=== PATIENT | female | born 1985 | race American Indian/Alaskan Native ===

== ENCOUNTER 2016-10-09 02:19 | Emergency (ER) | payer SELFPAY ==
[2016-10-09 02:20] VITALS: BMI 38.4
[2016-10-09 02:57] VITALS: RESP 16
[2016-10-09 03:27] LABS: BASO % 0.5 % (0.0-2.0); EOS # 0.1 K/uL (0.0-0.7); EOS % 1.3 % (0.0-4.0); HEMATOCRIT 39.7 % (34.0-47.0); LYMPH # 2.3 K/uL (1.0-4.3); LYMPH % 32.5 % (20.0-40.0); MEAN CELL VOLUME 88.4 fl (81.0-99.0); MEAN CORPUSCULAR HEMOGLOBIN 29.8 pg (27.0-31.0); MEAN CORPUSCULAR HGB CONC 33.7 g/dL (33.0-37.0); MEAN PLATELET VOLUME 7.2 fl (7.2-11.7); MONO # 0.6 K/uL (0.0-0.8); MONO % 8.7 % (0.0-10.0); NEUT # 4.1 K/uL (1.8-7.0); NRBC % 0.1 % (0.0-0.0); WHITE BLOOD COUNT 7.1 K/uL (4.8-10.8)
[2016-10-09 03:32] LABS: BLOOD UREA NITROGEN 9 mg/dl (7-17); CALCIUM 9.8 mg/dL (8.4-10.2); CARBON DIOXIDE 27 mmol/L (22-30); CHLORIDE 103 mmol/L (98-107); GFR AFRICAN-AMERICAN > 60; GLUCOSE,RANDOM 92 mg/dL (65-105); POTASSIUM 4.1 MMOL/L (3.6-5.0); SODIUM 143 mmol/l (132-148)
--- NOTE | 2016-10-09 03:51 | ED PDOC ---
HPI: Headache Time Seen by Provider: 10/09/16 02:34 Chief Complaint (Nursing): Headache Chief Complaint (Provider): Headache History Per: Patient History/Exam Limitations: no limitations Additional Complaint(s): Paulette Emerson, a 30 year old female, presents to the ED complaining of a headache x1 day. The patient reports that the headache started earlier today and it is a constant heaviness on both sides of her head. She states that she feels some tingling in her head and also behind her eyes. The patient reports that she has a history of recurrent headache and says that she thinks she may have migraines. She states that this is a typical headache for her. Of note: The patient states that she ran out of her hypertension medication and her pressure has be increasingly high due to this. The patient reports that she saw her doctor for the migraines and takes tylenol and advil to relieve the pain. Patient has never seen a neurologist. Past Medical History Reviewed: Historical Data, Nursing Documentation, Vital Signs Vital Signs: Last Vital Signs Temp 97.2 F L 10/09/16 02:29 Pulse 99 H 10/09/16 02:29 Resp 16 10/09/16 02:29 BP 157/107 H 10/09/16 02:29 Pulse Ox 100 10/09/16 02:29 - Medical History PMH: Back Problems, HTN Denies: Chronic Kidney Disease - Surgical History Surgical History: (x3) Other surgeries: Tubal ligation - Family History Family History: States: Unknown Family Hx, Hypertension - Immunization History Hx Influenza Vaccination: Yes - Home Medications Home Medications: Ambulatory Orders Medication Instructions Recorded Cimetidine 300 mg PO DAILY #5 tab 08/15/14 Clotrimazole 1% Cream [Lotrimin 1% 1 applic TOP BID #2 tube 08/15/14 CREAM] DiphenhydrAMINE [Benadryl] 25 mg PO Q8H PRN 5 Days 08/15/14 Prednisone 20 mg PO BID #10 tab 08/15/14 Naproxen [Naprosyn] 500 mg PO BID #20 tab 01/28/15 Tizanidine Hydrochloride 4 mg PO Q6 PRN #20 tab 01/28/15 [Tizanidine HCl] oxyCODONE/Acetaminophen [Percocet 1 tab PO Q6H PRN #20 tab 01/28/15 5/325 mg Tab] Acetaminophen with Codeine 1 tab PO Q6H PRN #15 tab 04/13/16 [Tylenol with Codeine No. 3 300 mg-30 mg] Naproxen [Naprosyn] 1 tab PO BID PRN #60 tab 04/17/16 Atenolol 100 mg PO DAILY #30 tab 10/09/16 amLODIPine [Norvasc] 10 mg PO DAILY #30 tab 10/09/16 - Allergies Allergies/Adverse Reactions: Allergies Allergy/AdvReac Type Severity Reaction Status Date / Time No Known Allergies Allergy Verified 01/28/15 13:16 Review of Systems ROS Statement: Except As Marked, All Systems Reviewed And Found Negative Neurological: Positive for: Headache (Constant headache on both sides of the head.), Other (Tingling in head and behind eyes.) Physical Exam - Reviewed Nursing Documentation Reviewed: Yes Vital Signs Reviewed: Yes - Physical Exam Appears: Positive for: Non-toxic, No Acute Distress Head Exam: Positive for: ATRAUMATIC, NORMAL INSPECTION, NORMOCEPHALIC Skin: Positive for: Normal Color, Warm, Dry Eye Exam: Positive for: Normal appearance, EOMI, PERRL ENT: Positive for: Normal ENT Inspection Neck: Positive for: Normal, Painless ROM, Supple Cardiovascular/Chest: Positive for: Regular Rate, Rhythm, Chest Non Tender. Negative for: Tachycardia Respiratory: Positive for: Normal Breath Sounds Gastrointestinal/Abdominal: Positive for: Normal Exam, Soft. Negative for: Tenderness, Guarding Back: Positive for: Normal Inspection Extremity: Positive for: Normal ROM Neurologic/Psych: Positive for: Alert, Oriented, Gait - Laboratory Results Result Diagrams: 10/09/16 03:21 10/09/16 03:21 - ECG O2 Sat by Pulse Oximetry: 100 (RA) Pulse Ox Interpretation: Normal - CT Scan/US CT head Other Rad Studies (CT/US): Read By Radiologist, Radiology Report Reviewed Other Rad Interpretation: no acute findings - Progress Re-evaluation Time: 05:00 Condition: Re-examined, Improved Medical Decision Making Medical Decision Makin Initial impression: 30 year old female presenting with hypertension and headache differentials: Hypertension urgencies, Migraines Initial Plan: * CT Head w/o contrast * EKG * Basic Metaolic Panel * CBC * Reglan 10mg IVP * Toradol 30mg IVP * Tylenol 650mg PO * Reevaluation Scribe Attestation Documented by Addie Caballero acting as a scribe for Esthela Quan MD. Provider Attestation All medical record entries made by the Scribe were at my direction and personally dictated by me. I have reviewed the chart and agree that the record accurately reflects my personal performance of the history, physical exam, medical decision making, and the department course for this patient. I have also personally directed, reviewed, and agree with the discharge instructions and disposition. Disposition - Clinical Impression Clinical Impression: Migraine, Hypertension - Patient ED Disposition Is Patient to be Admitted: No Doctor Will See Patient In The: Office Counseled Patient/Family Regarding: Studies Performed, Diagnosis, Need For Followup - Disposition Referrals: Dickson Daniel MD [Primary Care Provider] - Elver Taylor MD [Staff Provider] - Disposition: Routine/Home Disposition Time: 05:27 Condition: GOOD Additional Instructions: Take your medications as instructed. Follow up with your PCP in 2-3 days. Prescriptions: amLODIPine [Norvasc] 10 mg PO DAILY #30 tab Atenolol 100 mg PO DAILY #30 tab Instructions: Migraine Headache (ED), Hypertension (ED)
--- NOTE | 2016-10-09 04:08 | CT ---
EXAM: CT Head Without Intravenous Contrast CLINICAL HISTORY: 30 years old, female; Pain; Headache TECHNIQUE: Axial computed tomography images of the head/brain without intravenous contrast. This CT exam was performed using one or more of the following dose reduction techniques: automated exposure control, adjustment of the mA and/or kV according to patient size, and/or use of iterative reconstruction technique. Coronal and sagittal reformatted images were created and reviewed. EXAM DATE/TIME: 10/09/2016 2:55 AM COMPARISON: CT - HEAD W/O CONTRAST 04/13/2016 6:58:09 PM FINDINGS: No intracranial hemorrhage. No intracranial edema. No evidence of infarct. The sinuses and mastoid air cells are clear. IMPRESSION: No acute findings.
[2016-10-09] MEDS ORDERED: Magnesium Sulfate 1 gm in D5W 1 GM/100 ML BAG IVPB STA (04:15)
[2016-10-09] MEDS ORDERED: Dexamethasone 4 mg/1 ml IVP STA (04:15)
[2016-10-09] MEDS ORDERED: Valproate Sodium 500 mg Inj ONE (04:20)
[2016-10-09] MEDS ORDERED: Magnesium Sulfate 1 GM in Dextrose 5% In Water 100 ML IV STA (04:37)
[2016-10-09 06:16] VITALS: PULSE 78; TEMP 97.8; O2SAT 99
[2016-10-09 06:39] VITALS: BP 131/88
--- NOTE | 2016-10-09 10:11 | CARD ---
APPROVED REPORT EKG Measurement Heart [id number] <Conclusion> Normal sinus rhythm with limb lead reversal recommend repeat
== END 2016-10-09 06:40 | disposition home or self-care (01) ==
LOC: H.ER 02:19
DX: G43.909 Migraine, unspecified, not intractable, without status migrainosus (principal); I10 Essential (primary) hypertension
CPT/HCPCS: 70450; 80048; 85025; 93005; 96374; 96375; 99285; J1100; J1885; J2765; J3475

== ENCOUNTER 2017-04-06 07:59 | Emergency (ER) | payer MEDICAID, OTHER ==
[2017-04-06 08:15] VITALS: BMI 30.8
[2017-04-06 08:16] VITALS: RESP 16; TEMP 98.6; O2SAT 98
--- NOTE | 2017-04-06 09:04 | ED PDOC ---
HPI: Headache Time Seen by Provider: 04/06/17 08:41 Chief Complaint (Nursing): Headache Chief Complaint (Provider): Headache History Per: Patient History/Exam Limitations: no limitations Onset/Duration Of Symptoms: Days (2) Current Symptoms Are (Timing): Still Present Additional History Per: Patient Additional Complaint(s): 31yo female with history of HTN, presents to ED with complaints of headache, bilateral ear pain and runny nose for the past 2 days. Patient denies any associated sore throat, cough or fever. She offers no other medical complaints. Past Medical History Reviewed: Historical Data, Nursing Documentation, Vital Signs Vital Signs: Last Vital Signs Temp 98.6 F 04/06/17 08:15 Pulse 67 04/06/17 08:15 Resp 16 04/06/17 08:15 BP 140/89 04/06/17 08:15 Pulse Ox 98 04/06/17 08:15 - Medical History PMH: Back Problems, HTN Denies: Chronic Kidney Disease - Surgical History Surgical History: (x3) - Family History Family History: States: Unknown Family Hx, Hypertension - Immunization History Hx Influenza Vaccination: Yes - Home Medications Home Medications: Ambulatory Orders Medication Instructions Recorded Cimetidine 300 mg PO DAILY #5 tab 08/15/14 Clotrimazole 1% Cream [Lotrimin 1% 1 applic TOP BID #2 tube 08/15/14 CREAM] DiphenhydrAMINE [Benadryl] 25 mg PO Q8H PRN 5 Days cap 08/15/14 Prednisone 20 mg PO BID #10 tab 08/15/14 Naproxen [Naprosyn] 500 mg PO BID #20 tab 01/28/15 Tizanidine Hydrochloride 4 mg PO Q6 PRN #20 tab 01/28/15 [Tizanidine HCl] oxyCODONE/Acetaminophen [Percocet 1 tab PO Q6H PRN #20 tab 01/28/15 5/325 mg Tab] Acetaminophen with Codeine 1 tab PO Q6H PRN #15 tab 04/13/16 [Tylenol with Codeine No. 3 300 mg-30 mg] Naproxen [Naprosyn] 1 tab PO BID PRN #60 tab 04/17/16 Atenolol 100 mg PO DAILY #30 tab 10/09/16 amLODIPine [Norvasc] 10 mg PO DAILY #30 tab 10/09/16 Oseltamivir [Tamiflu] 75 mg PO BID #10 cap 04/06/17 traMADol [Ultram] 50 mg PO Q8 #10 tab 04/06/17 - Allergies Allergies/Adverse Reactions: Allergies Allergy/AdvReac Type Severity Reaction Status Date / Time No Known Allergies Allergy Verified 04/06/17 08:26 Review of Systems ROS Statement: Except As Marked, All Systems Reviewed And Found Negative Constitutional: Negative for: Fever ENT: Positive for: Ear Pain, Nose Discharge. Negative for: Throat Pain Respiratory: Negative for: Cough Neurological: Positive for: Headache Physical Exam - Reviewed Nursing Documentation Reviewed: Yes Vital Signs Reviewed: Yes - Physical Exam Appears: Positive for: Non-toxic, No Acute Distress Head Exam: Positive for: ATRAUMATIC, NORMAL INSPECTION, NORMOCEPHALIC Skin: Positive for: Normal Color Eye Exam: Positive for: Normal appearance ENT: Positive for: Normal ENT Inspection, TM Is/Are (clear bilaterally). Negative for: Pharyngeal Erythema, Tonsillar Exudate, Tonsillar Swelling Neck: Positive for: Normal, Painless ROM, Supple Cardiovascular/Chest: Positive for: Regular Rate, Rhythm Respiratory: Positive for: Normal Breath Sounds. Negative for: Respiratory Distress - ECG O2 Sat by Pulse Oximetry: 98 (RA) Pulse Ox Interpretation: Normal Medical Decision Making Medical Decision Making: Impression: Headache Plan: -- Motrin 600 mg PO -- Rapid flu Time: 1036 Serology report reviewed, patient negative for Flu A or B. Scribe Attestation: Documented by Emily Catherine, acting as a scribe for Navid Rey MD. Provider Scribe Attestation: All medical record entries made by the Scribe were at my direction and personally dictated by me. I have reviewed the chart and agree that the record accurately reflects my personal performance of the history, physical exam, medical decision making, and the department course for this patient. I have also personally directed, reviewed, and agree with the discharge instructions and disposition. Disposition - Clinical Impression Clinical Impression: Influenza - Patient ED Disposition Is Patient to be Admitted: No Counseled Patient/Family Regarding: Studies Performed, Diagnosis, Need For Followup, Rx Given - Disposition Referrals: [facility] [Outside] Disposition: Routine/Home Disposition Time: 10:38 Condition: FAIR Prescriptions: Oseltamivir [Tamiflu] 75 mg PO BID #10 cap traMADol [Ultram] 50 mg PO Q8 #10 tab Instructions: Influenza (ED) Forms: [employer] [facility] ([place])
[2017-04-06 12:14] VITALS: BP 132/88; PULSE 66
== END 2017-04-06 12:14 | disposition home or self-care (01) ==
LOC: H.ER 07:59
DX: J11.1 Influenza due to unidentified influenza virus with other respiratory manifestations (principal); I10 Essential (primary) hypertension

== ENCOUNTER 2017-07-04 03:10 | Emergency (ER) | payer OTHER ==
[2017-07-04 03:11] VITALS: BMI 30.8
[2017-07-04 03:39] VITALS: BP 143/97; PULSE 77; RESP 18; TEMP 98.4; O2SAT 100
--- NOTE | 2017-07-04 04:09 | ED PDOC ---
HPI: Headache Chief Complaint (Provider): headache History Per: Patient History/Exam Limitations: no limitations Onset/Duration Of Symptoms: Hrs (6) Current Symptoms Are (Timing): Still Present Severity: Moderate Quality: "Pain" Associated Symptoms: Blurred Vision. denies: Photophobia, Nausea, Vomiting Additional History Per: Patient Additional Complaint(s): 31 y/o F with Hx of migraines presents c/o headache for the past 6 hours. Patient states she took tylenol and tramadol at home without relief. She states pain is the headache that she usually gets when she has migraines attacks. Pain is associated with blurry vision but denies any other symptoms including Nausea , vomiting, CP, SOB, dizziness. - Risk Factors SAH Risk Factors: Pos: Sudden Onset Of Pain Nest Degree Relative(s) W/SAH, Polycystic Kidney Disease, Marfan's Syndrome, Rich-Danlos Syndrome, Neurofibromatos, Type I, Worst Headache Of Life <Jarad Pineda - Last Filed: 07/04/17 15:39> <Esthela Quan - Last Filed: 07/05/17 18:05> Time Seen by Provider: 07/04/17 03:25 Chief Complaint (Nursing): Headache Supervising Attending Note - Supervising Attending Note The Documented history was done by the: Physician Refuse Driver, Attending Physician The documented physical exam was done by the: Physician Refuse Driver, Attending Physician The documented procedures were done by the: Physician Refuse Driver, Attending Physician - Attestation: I have personally seen and examined this patient.: Yes I have fully participated in the care of the patient.: Yes I have reviewed all pertinent clinical information: Yes <Esthela Quan - Last Filed: 07/05/17 18:05> Past Medical History Reviewed: Nursing Documentation, Vital Signs Vital Signs: Last Vital Signs Temp 98.4 F 07/04/17 03:31 Pulse 77 07/04/17 03:31 Resp 18 07/04/17 03:31 BP 143/97 H 07/04/17 03:31 Pulse Ox 100 07/04/17 03:31 - Medical History PMH: Back Problems, HTN Denies: Chronic Kidney Disease - Surgical History Surgical History: (x3) - Family History Family History: States: Unknown Family Hx, Hypertension - Immunization History Hx Influenza Vaccination: Yes <Jarad Pineda - Last Filed: 07/04/17 15:39> Reviewed: Historical Data Vital Signs: Last Vital Signs Temp 98.4 F 07/04/17 03:31 Pulse 77 07/04/17 03:31 Resp 18 07/04/17 03:31 BP 143/97 H 07/04/17 03:31 Pulse Ox 100 07/04/17 04:12 <Esthela Quan - Last Filed: 07/05/17 18:05> - Home Medications Home Medications: Ambulatory Orders Medication Instructions Recorded Cimetidine 300 mg PO DAILY #5 tab 08/15/14 Clotrimazole 1% Cream [Lotrimin 1% 1 applic TOP BID #2 tube 08/15/14 CREAM] DiphenhydrAMINE [Benadryl] 25 mg PO Q8H PRN 5 Days cap 08/15/14 Prednisone 20 mg PO BID #10 tab 08/15/14 Naproxen [Naprosyn] 500 mg PO BID #20 tab 01/28/15 Tizanidine Hydrochloride 4 mg PO Q6 PRN #20 tab 01/28/15 [Tizanidine HCl] oxyCODONE/Acetaminophen [Percocet 1 tab PO Q6H PRN #20 tab 01/28/15 5/325 mg Tab] Acetaminophen with Codeine 1 tab PO Q6H PRN #15 tab 04/13/16 [Tylenol with Codeine No. 3 300 mg-30 mg] Naproxen [Naprosyn] 1 tab PO BID PRN #60 tab 04/17/16 Atenolol 100 mg PO DAILY #30 tab 10/09/16 amLODIPine [Norvasc] 10 mg PO DAILY #30 tab 10/09/16 Oseltamivir [Tamiflu] 75 mg PO BID #10 cap 04/06/17 traMADol [Ultram] 50 mg PO Q8 #10 tab 04/06/17 - Allergies Allergies/Adverse Reactions: Allergies Allergy/AdvReac Type Severity Reaction Status Date / Time No Known Allergies Allergy Verified 04/06/17 08:26 Review of Systems ROS Statement: Except As Marked, All Systems Reviewed And Found Negative Eyes: Positive for: Vision Change Neurological: Positive for: Headache <Jarad Pineda - Last Filed: 07/04/17 15:39> ROS Statement: Except As Marked, All Systems Reviewed And Found Negative <AvelinaDennismoodykatie Salazar - Last Filed: 07/05/17 18:05> Physical Exam - Physical Exam Appears: Positive for: Non-toxic Head Exam: Positive for: ATRAUMATIC Skin: Positive for: Normal Color Eye Exam: Positive for: PERRL. Negative for: Conjunctival injection Cardiovascular/Chest: Positive for: Regular Rate, Rhythm. Negative for: Edema, Gallop, Murmur Respiratory: Negative for: Decreased Breath Sounds, Crackles, Rales, Stridor, Wheezing Gastrointestinal/Abdominal: Positive for: Soft. Negative for: Tenderness, Distended, Guarding Neurologic/Psych: Positive for: Alert, Oriented. Negative for: Motor/Sensory Deficits <Jarad Pineda - Last Filed: 07/04/17 15:39> - Reviewed Nursing Documentation Reviewed: Yes Vital Signs Reviewed: Yes <Esthela Quan - Last Filed: 07/05/17 18:05> - ECG O2 Sat by Pulse Oximetry: 100 <Jarad Pineda - Last Filed: 07/04/17 15:39> - Progress Re-evaluation Time: 06:30 Condition: Re-examined, Improved <AvelinaDennisdeanna Marie - Last Filed: 07/05/17 18:05> Medical Decision Making Medical Decision Makin31 y/o with hx of migraines presents c/o headache Likely migraine attack Toradol 30 mg IV once Reglan 10 mg IV once IV NS 1L <Jarad Pineda - Last Filed: 07/04/17 15:39> Medical Decision Making: Patient significantly improved and would like to go home. Upon provider evaluation patient is medically stable, and requires no further treatment in the ED at this time. Patient will be discharged. Counseling was provided and all questions were answered regarding diagnosis and need for follow up with PMD. There is agreement to discharge plan. Return if symptoms persist or worsen. Scribe Attestation: Documented by Eliu Hutton, acting as a scribe for Esthela Quan MD. Provider Scribe Attestation: All medical record entries made by the Scribe were at my direction and personally dictated by me. I have reviewed the chart and agree that the record accurately reflects my personal performance of the history, physical exam, medical decision making, and the department course for this patient. I have also personally directed, reviewed, and agree with the discharge instructions and disposition. <Esthela Quan - Last Filed: 07/05/17 18:05> Disposition <Jarad Pineda - Last Filed: 07/04/17 15:39> - Patient ED Disposition Is Patient to be Admitted: No Counseled Patient/Family Regarding: Studies Performed, Diagnosis, Need For Followup - Disposition Disposition: Routine/Home Disposition Time: 06:32 <Esthela Quan - Last Filed: 07/05/17 18:05> - Clinical Impression Clinical Impression: Migraine - Disposition Referrals: [facility] [Outside] Condition: GOOD Additional Instructions: Follow up with your PCP in 2-3 days. Instructions: Migraine Headache (DC) - PA / [employer] / Resident Statement MD/DO has reviewed & agrees with the documentation as recorded. / has examined the patient and agrees with the treatment plan. <Esthela Quna - Last Filed: 07/05/17 18:05>
[2017-07-04] MEDS ORDERED: Sodium Chloride 0.9% 1,000 ML IV SCH (04:15)
[2017-07-04] MEDS ORDERED: Magnesium Sulfate 2 gm/50 ml 2 GM/50 ML BAG IVPB ONE (04:56)
[2017-07-04] MEDS ORDERED: Dexamethasone 10 MG in Sodium Chloride 0.9% 50 ML IV ONE (04:56)
[2017-07-04] MEDS ORDERED: Valproate 500 MG in Sodium Chloride 0.9% 100 ML IVPB ONE (05:05)
[2017-07-04] MEDS ORDERED: DiphenhydrAMINE 50 mg/ml Inj IV STA (05:06)
== END 2017-07-04 06:49 | disposition home or self-care (01) ==
LOC: H.ER 03:10
DX: G43.909 Migraine, unspecified, not intractable, without status migrainosus (principal); I10 Essential (primary) hypertension
CPT/HCPCS: 96361; 96365; 96367; 96375; 99284; J1100; J1200; J1885; J2765; J7040

== ENCOUNTER 2017-10-19 05:13 | Emergency (ER) | payer MEDICAID, OTHER ==
[2017-10-19 05:14] VITALS: BMI 30.8
[2017-10-19 05:30] VITALS: PULSE 80; TEMP 98.3; O2SAT 100
[2017-10-19 07:33] VITALS: RESP 20
[2017-10-19] MEDS: Sodium Chloride 0.9% 1,000 ML IV STA (07:43)
[2017-10-19 07:56] LABS: BASO % 0.6 % (0.0-2.0); EOS # 0.1 K/uL (0.0-0.7); HEMOGLOBIN 12.7 g/dL (12.0-16.0); LYMPH # 2.2 K/uL (1.0-4.3); MEAN CELL VOLUME 89.2 fl (81.0-99.0); MEAN CORPUSCULAR HEMOGLOBIN 30.3 pg (27.0-31.0); MEAN PLATELET VOLUME 7.5 fl (7.2-11.7); MONO # 0.4 K/uL (0.0-0.8); MONO % 7.6 % (0.0-10.0); NEUT # 2.8 K/uL (1.8-7.0); NEUT % 50.8 % (50.0-75.0); NRBC % 0.1 % (0.0-0.0); RBC 4.19 Mil/uL (3.80-5.20); RED CELL DISTRIBUTION WIDTH 13.7 % (11.5-14.5); WHITE BLOOD COUNT 5.6 K/uL (4.8-10.8)
[2017-10-19 08:08] LABS: INR 1.1
[2017-10-19 08:11] LABS: PARTIAL THROMBOPLASTIN TIME 31.9 Seconds (25.6-37.1)
[2017-10-19 08:38] LABS: BLOOD UREA NITROGEN 13 mg/dl (7-17); GFR AFRICAN-AMERICAN > 60; GFR NON-AFRICAN AMERICAN > 60
[2017-10-19 08:39] LABS: ALB/GLOB RATIO 1.2 (1.0-2.1); ALBUMIN 4.6 g/dL (3.5-5.0); ALT/SGPT 26 U/L (9-52); AST/SGOT 35 U/L (14-36); CALCIUM 9.1 mg/dL (8.4-10.2)
--- NOTE | 2017-10-19 09:13 | CARD ---
APPROVED REPORT Date of service: 10/19/2017 EKG Measurement Heart [id number] <Conclusion> Normal sinus rhythm NT wave abnormality abnormal ECG
[2017-10-19 09:39] VITALS: BP 145/97
--- NOTE | 2017-10-19 09:40 | ED PDOC ---
HPI: Hypertension/Hypotension Time Seen by Provider: 10/19/17 07:21 Chief Complaint (Nursing): High Blood Pressure Chief Complaint (Provider): Headache History Per: Patient History/Exam Limitations: no limitations Onset/Duration Of Symptoms: Days (yesterday) Current Symptoms Are (Timing): Still Present Additional Complaint(s): Pt. states her bp was elevated yesterday and triggered her to get a headache. Did not check her blood pressure at all. Has ran out of meds for 2 days. Not worst pain in her life. No neck pain. Gets same headaches when her pressure goes up. Has tingles to both hands and both feet. No weakness. No chest pain , dyspnea. No dizziness. Nausea, no vomit. No diarrhea. Past Medical History Vital Signs: Last Vital Signs Temp 98.3 F 10/19/17 05:27 Pulse 80 10/19/17 07:20 Resp 20 10/19/17 07:20 BP 149/96 H 10/19/17 07:20 Pulse Ox 100 10/19/17 07:20 - Medical History PMH: Back Problems, HTN Denies: Chronic Kidney Disease - Surgical History Surgical History: (x3) - Family History Family History: States: Unknown Family Hx, Hypertension - Immunization History Hx Influenza Vaccination: Yes - Home Medications Home Medications: Ambulatory Orders Medication Instructions Recorded Cimetidine 300 mg PO DAILY #5 tab 08/15/14 Clotrimazole 1% Cream [Lotrimin 1% 1 applic TOP BID #2 tube 08/15/14 CREAM] DiphenhydrAMINE [Benadryl] 25 mg PO Q8H PRN 5 Days cap 08/15/14 Prednisone 20 mg PO BID #10 tab 08/15/14 Naproxen [Naprosyn] 500 mg PO BID #20 tab 01/28/15 Tizanidine Hydrochloride 4 mg PO Q6 PRN #20 tab 01/28/15 [Tizanidine HCl] oxyCODONE/Acetaminophen [Percocet 1 tab PO Q6H PRN #20 tab 01/28/15 5/325 mg Tab] Acetaminophen with Codeine 1 tab PO Q6H PRN #15 tab 04/13/16 [Tylenol with Codeine No. 3 300 mg-30 mg] Naproxen [Naprosyn] 1 tab PO BID PRN #60 tab 04/17/16 Atenolol 100 mg PO DAILY #30 tab 10/09/16 amLODIPine [Norvasc] 10 mg PO DAILY #30 tab 10/09/16 Oseltamivir [Tamiflu] 75 mg PO BID #10 cap 04/06/17 traMADol [Ultram] 50 mg PO Q8 #10 tab 04/06/17 Atenolol 100 mg PO DAILY 5 Days tab 10/19/17 amLODIPine [Norvasc] 10 mg PO DAILY 5 Days tab 10/19/17 - Allergies Allergies/Adverse Reactions: Allergies Allergy/AdvReac Type Severity Reaction Status Date / Time No Known Allergies Allergy Verified 04/06/17 08:26 Review of Systems ROS Statement: Except As Marked, All Systems Reviewed And Found Negative Gastrointestinal: Positive for: Nausea Neurological: Positive for: Headache. Negative for: Weakness, Numbness Physical Exam - Reviewed Nursing Documentation Reviewed: Yes Vital Signs Reviewed: Yes - Physical Exam Appears: Positive for: Non-toxic, No Acute Distress Head Exam: Positive for: ATRAUMATIC, NORMAL INSPECTION, NORMOCEPHALIC Skin: Positive for: Normal Color, Warm, DRY Eye Exam: Positive for: EOMI, Normal appearance, PERRL ENT: Positive for: Normal ENT Inspection Neck: Positive for: Normal, Painless ROM Cardiovascular/Chest: Positive for: Regular Rate, Rhythm Respiratory: Positive for: CNT, Normal Breath Sounds Gastrointestinal/Abdominal: Positive for: Normal Exam, Soft. Negative for: Tenderness Back: Positive for: Normal Inspection. Negative for: L CVA Tenderness, R CVA Tenderness Extremity: Positive for: Normal ROM. Negative for: Tenderness, Pedal Edema Neurologic/Psych: Positive for: Alert, feeder/folder II-XII, Oriented. Negative for: Motor/Sensory Deficits - Laboratory Results Result Diagrams: 10/19/17 07:40 10/19/17 07:40 Interpretation Of Abn Labs: no acute - ECG ECG: Positive for: Interpreted By Me, Viewed By Me ECG Rhythm: Positive for: Normal QRS, Normal ST Segment, Sinus Rhythm O2 Sat by Pulse Oximetry: 100 Pulse Ox Interpretation: Normal - Progress ED Course And Treament: 942: Feels much better. Fu with pcp. In no pain. AAOx3. Tolerated PO. Ambulated with no issues. Wants to go home. Disposition - Clinical Impression Clinical Impression: Hypertension, Headache - Patient ED Disposition Is Patient to be Admitted: No Counseled Patient/Family Regarding: Studies Performed, Diagnosis, Need For Followup - Disposition Referrals: Dickson Daniel MD [Primary Care Provider] - 10/20/17 Disposition: Routine/Home Disposition Time: 09:43 Condition: STABLE Additional Instructions: Return if not better in 3 days. Prescriptions: amLODIPine [Norvasc] 10 mg PO DAILY 5 Days tab Atenolol 100 mg PO DAILY 5 Days tab Instructions: High Blood Pressure in Adults, Headache, Adult (DC) Forms: [employer] ([place]), [facility] ED School/Work Excuse
--- NOTE | 2017-10-19 09:44 | CT ---
Date of service: 10/19/2017 PROCEDURE: CT HEAD WITHOUT CONTRAST. HISTORY: headache COMPARISON: 10/09/2016 TECHNIQUE: Axial computed tomography images were obtained through the head/brain without intravenous contrast. Radiation dose: Total exam DLP = 831.81 mGy-cm. This CT exam was performed using one or more of the following dose reduction techniques: Automated exposure control, adjustment of the mA and/or kV according to patient size, and/or use of iterative reconstruction technique. FINDINGS: HEMORRHAGE: No intracranial hemorrhage. BRAIN: No mass effect or edema. No atrophy or chronic microvascular ischemic changes. VENTRICLES: Unremarkable. No hydrocephalus. CALVARIUM: Unremarkable. PARANASAL SINUSES: Unremarkable as visualized. No significant inflammatory changes. MASTOID AIR CELLS: Unremarkable as visualized. No inflammatory changes. OTHER FINDINGS: None. IMPRESSION: Normal CT of the Head. No intracranial mass, hemorrhage or evidence of acute infarct.
== END 2017-10-19 09:51 | disposition home or self-care (01) ==
LOC: H.ER 05:13
DX: I10 Essential (primary) hypertension (principal); R51 Headache
CPT/HCPCS: 70450; 80053; 81025; 84484; 85025; 85610; 85730; 93005; 96374; 99285; J2765; J7030

== ENCOUNTER 2018-05-03 10:26 | Emergency (ER) | payer MEDICAID, OTHER ==
[2018-05-03 10:26] VITALS: BMI 30.8
[2018-05-03 10:42] VITALS: O2SAT 100
--- NOTE | 2018-05-03 11:08 | ED PDOC ---
HPI: Headache Time Seen by Provider: 05/03/18 10:49 Chief Complaint (Nursing): Headache Chief Complaint (Provider): Headache History Per: Patient History/Exam Limitations: no limitations Onset/Duration Of Symptoms: Hrs (today morning) Current Symptoms Are (Timing): Still Present Additional Complaint(s): 32 year old female with HTN presents to the ED for an evaluation of headache and tingling around the lips since today morning. She states she forgot to take her blood pressure medication. Otherwise she denies, chest pain, shortness of breath or focal weakness. PMD: non [facility] provider Past Medical History Reviewed: Historical Data, Nursing Documentation, Vital Signs Vital Signs: Last Vital Signs Temp 98.5 F 05/03/18 10:39 Pulse 79 05/03/18 10:39 Resp 18 05/03/18 10:39 BP 151/89 H 05/03/18 10:39 Pulse Ox 100 05/03/18 10:39 - Medical History PMH: Back Problems, HTN Denies: Chronic Kidney Disease - Surgical History Surgical History: (x3) - Family History Family History: States: Unknown Family Hx, Hypertension - Social History Current smoker - smoking cessation education provided: No Alcohol: Social Drugs: Denies - Immunization History Hx Influenza Vaccination: Yes - Home Medications Home Medications: Ambulatory Orders Medication Instructions Recorded Cimetidine 300 mg PO DAILY #5 tab 08/15/14 Clotrimazole 1% Cream [Lotrimin 1% 1 applic TOP BID #2 tube 08/15/14 CREAM] DiphenhydrAMINE [Benadryl] 25 mg PO Q8H PRN 5 Days cap 08/15/14 Prednisone 20 mg PO BID #10 tab 08/15/14 Naproxen [Naprosyn] 500 mg PO BID #20 tab 01/28/15 Tizanidine Hydrochloride 4 mg PO Q6 PRN #20 tab 01/28/15 [Tizanidine HCl] oxyCODONE/Acetaminophen [Percocet 1 tab PO Q6H PRN #20 tab 01/28/15 5/325 mg Tab] Acetaminophen with Codeine 1 tab PO Q6H PRN #15 tab 04/13/16 [Tylenol with Codeine No. 3 300 mg-30 mg] Naproxen [Naprosyn] 1 tab PO BID PRN #60 tab 04/17/16 Atenolol 100 mg PO DAILY #30 tab 10/09/16 amLODIPine [Norvasc] 10 mg PO DAILY #30 tab 10/09/16 Oseltamivir Cap [Tamiflu] 75 mg PO BID #10 cap 04/06/17 traMADol [Ultram] 50 mg PO Q8 #10 tab 04/06/17 Atenolol 100 mg PO DAILY 5 Days tab 10/19/17 amLODIPine [Norvasc] 10 mg PO DAILY 5 Days tab 10/19/17 Atenolol 100 mg PO DAILY #30 tab 05/03/18 - Allergies Allergies/Adverse Reactions: Allergies Allergy/AdvReac Type Severity Reaction Status Date / Time No Known Allergies Allergy Verified 04/06/17 08:26 Review of Systems ROS Statement: Except As Marked, All Systems Reviewed And Found Negative Respiratory: Negative for: Shortness of Breath Neurological: Positive for: Headache, Other (tingling around lips). Negative for: Weakness Physical Exam - Reviewed Nursing Documentation Reviewed: Yes Vital Signs Reviewed: Yes - Physical Exam Appears: Positive for: Well, Non-toxic, No Acute Distress Head Exam: Positive for: ATRAUMATIC, NORMAL INSPECTION, NORMOCEPHALIC Skin: Positive for: Normal Color, Warm, DRY Eye Exam: Positive for: EOMI, Normal appearance, PERRL ENT: Positive for: Normal ENT Inspection Neck: Positive for: Normal, Painless ROM Cardiovascular/Chest: Positive for: Regular Rate, Rhythm. Negative for: Murmur Respiratory: Positive for: Normal Breath Sounds. Negative for: Decreased Breath Sounds, Respiratory Distress Gastrointestinal/Abdominal: Positive for: Normal Exam, Soft. Negative for: Tenderness Back: Positive for: Normal Inspection Extremity: Positive for: Normal ROM. Negative for: Tenderness, Pedal Edema, Deformity Neurologic/Psych: Positive for: Alert, box inspector II-XII (intract), Oriented (x3), Gait (steady). Negative for: Motor/Sensory Deficits, Mood/Affect, Aphasia, Facial Droop - ECG O2 Sat by Pulse Oximetry: 100 (RA) Pulse Ox Interpretation: Normal Medical Decision Making Medical Decision Making: Time: 1055 Impression: Blood pressure is 156/107. Symptoms are due to blood pressure. Will treat for blood pressure to improve symptoms Plan: --EKG --Lopressor 25mg --Ofirmev 1000 mg in 100 ml ---Feels better BP 128/86 Scribe Attestation: Documented by Cristal Padilla, acting as a scribe for Navid Rey MD. Provider Scribe Attestation: All medical record entries made by the Scribe were at my direction and personally dictated by me. I have reviewed the chart and agree that the record accurately reflects my personal performance of the history, physical exam, medical decision making, and the department course for this patient. I have also personally directed, reviewed, and agree with the discharge instructions and disposition. Disposition - Clinical Impression Clinical Impression: Hypertension - Patient ED Disposition Is Patient to be Admitted: No Counseled Patient/Family Regarding: Diagnosis, Need For Followup, Rx Given - Disposition Referrals: [facility] [Outside] Disposition: Routine/Home Disposition Time: 12:38 Condition: FAIR Prescriptions: Atenolol 100 mg PO DAILY #30 tab Instructions: High Blood Pressure in Adults Forms: [employer] (Sami)
[2018-05-03 13:00] VITALS: BP 130/81; PULSE 59; RESP 16; TEMP 98.1
--- NOTE | 2018-05-03 22:26 | CARD ---
APPROVED REPORT Date of service: 05/03/2018 EKG Measurement Heart [id number] <Conclusion> Normal sinus rhythm with sinus arrhythmia Normal ECG
== END 2018-05-03 13:25 | disposition home or self-care (01) ==
LOC: H.ER 10:26
DX: I10 Essential (primary) hypertension (principal)
CPT/HCPCS: 81025; 93005; 96374; 99285; J0131

== ENCOUNTER 2018-06-09 09:05 | Inpatient (IN) | payer OTHER ==
[2018-06-09 09:11] VITALS: BMI 32.8
--- NOTE | 2018-06-09 09:54 | ED PDOC ---
- ECG O2 Sat by Pulse Oximetry: 97 Disposition - Disposition
--- NOTE | 2018-06-09 10:01 | ED PDOC ---
HPI: General Adult Time Seen by Provider: 06/09/18 09:15 Chief Complaint (Nursing): Anxiety Chief Complaint (Provider): Anxiety History Per: Patient History/Exam Limitations: no limitations Onset/Duration Of Symptoms: Days Have you had recent travel within the past 21 days to any of the following countries: [place], [place], [place] or [place]?: No Current Symptoms Are (Timing): Still Present Additional History Per: Patient Additional Complaint(s): 32yo female, history of hypertension, comes to ER reporting palpitations, sweats and felt as if "couldn't breathe" twice yesterday and once this morning. She states the episodes last approximately 7 minutes, and this is the worst instance. She reports feeling better after sitting down and resting; patient does report familial stress as she is raising 3 children alone. She denies any chest pain, fever, chills, vomiting. No recent travels, OCP use, or other comp laints. PMD: Dr. Dickson Daniel Past Medical History Reviewed: Historical Data, Nursing Documentation, Vital Signs Vital Signs: Last Vital Signs Temp 97 F L 06/09/18 09:10 Pulse 70 06/09/18 09:10 Resp 18 06/09/18 09:10 BP 124/72 06/09/18 09:10 Pulse Ox 97 06/09/18 09:10 - Medical History PMH: Back Problems, HTN Denies: Chronic Kidney Disease - Surgical History Surgical History: (x3) - Family History Family History: States: Hypertension - Living Arrangements Living Arrangements: With Family - Immunization History Hx Influenza Vaccination: Yes - Home Medications Home Medications: Ambulatory Orders Medication Instructions Recorded Cimetidine 300 mg PO DAILY #5 tab 08/15/14 Clotrimazole 1% Cream [Lotrimin 1% 1 applic TOP BID #2 tube 08/15/14 CREAM] DiphenhydrAMINE [Benadryl] 25 mg PO Q8H PRN 5 Days cap 08/15/14 Prednisone 20 mg PO BID #10 tab 08/15/14 Naproxen [Naprosyn] 500 mg PO BID #20 tab 01/28/15 Tizanidine Hydrochloride 4 mg PO Q6 PRN #20 tab 01/28/15 [Tizanidine HCl] oxyCODONE/Acetaminophen [Percocet 1 tab PO Q6H PRN #20 tab 01/28/15 5/325 mg Tab] Acetaminophen with Codeine 1 tab PO Q6H PRN #15 tab 04/13/16 [Tylenol with Codeine No. 3 300 mg-30 mg] Naproxen [Naprosyn] 1 tab PO BID PRN #60 tab 04/17/16 Atenolol 100 mg PO DAILY #30 tab 10/09/16 amLODIPine [Norvasc] 10 mg PO DAILY #30 tab 10/09/16 Oseltamivir Cap [Tamiflu] 75 mg PO BID #10 cap 04/06/17 traMADol [Ultram] 50 mg PO Q8 #10 tab 04/06/17 Atenolol 100 mg PO DAILY 5 Days tab 10/19/17 amLODIPine [Norvasc] 10 mg PO DAILY 5 Days tab 10/19/17 Atenolol 100 mg PO DAILY #30 tab 05/03/18 - Allergies Allergies/Adverse Reactions: Allergies Allergy/AdvReac Type Severity Reaction Status Date / Time No Known Allergies Allergy Verified 06/09/18 09:25 Review of Systems ROS Statement: Except As Marked, All Systems Reviewed And Found Negative Constitutional: Positive for: Sweats. Negative for: Fever, Chills Cardiovascular: Positive for: Palpitations. Negative for: Chest Pain Gastrointestinal: Negative for: Nausea, Vomiting Physical Exam - Reviewed Nursing Documentation Reviewed: Yes Vital Signs Reviewed: Yes - Physical Exam Appears: Positive for: Non-toxic, No Acute Distress Head Exam: Positive for: ATRAUMATIC, NORMAL INSPECTION, NORMOCEPHALIC Skin: Positive for: Normal Color Eye Exam: Positive for: EOMI, PERRL Neck: Positive for: Painless ROM, Supple Cardiovascular/Chest: Positive for: Regular Rate, Rhythm. Negative for: Tachycardia Respiratory: Positive for: Normal Breath Sounds. Negative for: Respiratory Distress Gastrointestinal/Abdominal: Positive for: Soft Back: Positive for: Normal Inspection Extremity: Positive for: Normal ROM. Negative for: Deformity Neurological/Psych: Positive for: Awake, Alert, Normal Tone, Oriented (x 3), Mood/Affect (calm, answering questions appropriately). Negative for: Motor/Sensory Deficits - Laboratory Results Result Diagrams: 06/09/18 10:34 06/09/18 10:34 - ECG O2 Sat by Pulse Oximetry: 97 (RA) Pulse Ox Interpretation: Normal Medical Decision Making Medical Decision [place] female with palpitations, sweats Plan: -- Labs -- EKG -- CXR 1040 EKG: Sinus arrhythmia, 63BPM 1130 CXR FINDINGS: LUNGS: No focal consolidation. Please note that chest x-ray has limited sensitivity for the detection of pulmonary masses. PLEURA: No significant pleural effusion identified. No definite pneumothorax . CARDIOVASCULAR: The cardiomediastinal silhouette appears within normal limits of size. No atherosclerotic calcification present. OSSEOUS STRUCTURES: No acute osseous abnormality identified. VISUALIZED UPPER ABDOMEN: Unremarkable. OTHER FINDINGS: None. IMPRESSION: No focal consolidation. 1143 Labs reviewed, patient with elevated DDimer CT Chest ordered to r/o PE 1310 CT Chest FINDINGS: PULMONARY ARTERIES: There is a solitary of diminished density identified in a distal right lower lobe pulmonary artery branch suspicious for but not definitive for a tiny pulmonary embolus. Remaining bilateral pulmonary arteries are normal in overall contrast attenuation. AORTA: No acute findings. No thoracic aortic aneurysm. No aortic atherosclerotic calcification or mural plaque present. Right and left ventricular sizes appear grossly within normal limits with no evidence of right ventricular dilatation or straightening/leftward convexity of the interventricular septum. No overt CT pattern of right ventricular strain appreciable. LUNGS: No nodule, mass or pulmonary consolidation. Trace bilateral basilar dependent at electasis. PLEURAL SPACES: Unremarkable. No effusion or pneumothorax. HEART: Unremarkable. No cardiomegaly. No significant pericardial effusion. LYMPH NODES: No lymphadenopathy. BONES, CHEST WALL: Unremarkable. No fracture or destructive lesion the thoracic inlet appears unremarkable. OTHER FINDINGS: Unremarkable. IMPRESSION: 1. No enhancement versus potential tiny pulmonary embolus and a solitary right lower lobe pulmonary artery with remainder of the pulmonary arterial system normal appearing. Overt CT pattern of right ventricular strain. Clinically correlate nevertheless. 2. Trace bibasilar dependent atelectasis. [address] Ortez, informed of CT findings and states he will accept patient for admission Additional orders placed as requested; Dr. Ortez to take over care now. ScribeAttestation: Documented byEmily Catherine, acting as a scribe for Josselyn Coats MD. Provider ScribeAttestation: All medical record entries made by the Scribe were at my direction and personally dictated by me. I have reviewed the chart and agree that the record accurately reflects my personal performance of the history, physical exam, medical decision making, and the department course for this patient. I have also personally directed, reviewed, and agree with the discharge instructions and disposition. Disposition - Disposition Forms: [employer] (Uzbek)
[2018-06-09 11:12] LABS: BASO % 0.5 % (0.0-2.0); EOS # 0.1 K/uL (0.0-0.7); EOS % 1.8 % (0.0-4.0); HEMOGLOBIN 12.6 g/dL (12.0-16.0); LYMPH # 1.5 K/uL (1.0-4.3); LYMPH % 24.4 % (20.0-40.0); MEAN CELL VOLUME 90.6 fl (81.0-99.0); MEAN CORPUSCULAR HEMOGLOBIN 30.4 pg (27.0-31.0); MEAN CORPUSCULAR HGB CONC 33.5 g/dL (33.0-37.0); MEAN PLATELET VOLUME 7.8 fl (7.2-11.7); MONO # 0.4 K/uL (0.0-0.8); MONO % 6.1 % (0.0-10.0); NEUT # 4.2 K/uL (1.8-7.0); NEUT % 67.2 % (50.0-75.0); NRBC % 0.2 % (0.0-0.0); RBC 4.16 Mil/uL (3.80-5.20); RED CELL DISTRIBUTION WIDTH 13.4 % (11.5-14.5); WHITE BLOOD COUNT 6.2 K/uL (4.8-10.8)
[2018-06-09 11:20] LABS: INR 1.1; PROTHROMBIN TIME 12.2 Seconds (9.8-13.1)
[2018-06-09 11:23] LABS: PARTIAL THROMBOPLASTIN TIME 31.7 Seconds (25.6-37.1)
[2018-06-09 11:28] LABS: SQUAMOUS EPITHIAL 12 /hpf (0-5); URINE BACTERIA RARE (<OCC); URINE BILIRUBIN NEGATIVE (NEGATIVE); URINE BLOOD NEGATIVE (NEGATIVE); URINE CLARITY SLIGHTY-CLOUDY (Clear); URINE COLOR YELLOW (YELLOW); URINE GLUCOSE (UA) NEG (NEGATIVE); URINE LEUKOCYTE ESTERASE NEG Leu/uL (Negative); URINE PROTEIN 30 mg/dL (NEGATIVE)
--- NOTE | 2018-06-09 11:29 | RAD ---
HISTORY: Palpitations COMPARISON: Chest x-ray performed 04/03/14 TECHNIQUE: Chest PA and lateral FINDINGS: LUNGS: No focal consolidation. Please note that chest x-ray has limited sensitivity for the detection of pulmonary masses. PLEURA: No significant pleural effusion identified. No definite pneumothorax . CARDIOVASCULAR: The cardiomediastinal silhouette appears within normal limits of size. No atherosclerotic calcification present. OSSEOUS STRUCTURES: No acute osseous abnormality identified. VISUALIZED UPPER ABDOMEN: Unremarkable. OTHER FINDINGS: None. IMPRESSION: No focal consolidation.
[2018-06-09 11:31] LABS: ALB/GLOB RATIO 1.1 (1.0-2.1); ALBUMIN 4.4 g/dL (3.5-5.0); BLOOD UREA NITROGEN 12 mg/dl (7-17); CALCIUM 9.2 mg/dL (8.4-10.2); GFR NON-AFRICAN AMERICAN > 60
[2018-06-09 11:37] LABS: ALT/SGPT 31 U/L (9-52); AST/SGOT 36 U/L (14-36)
[2018-06-09] MEDS ORDERED: Iodixanol 320 MG/ML 100 ML BOTTLE IV ONE (12:03)
[2018-06-09] MEDS ORDERED: Sodium Chloride 0.9% 50 ML IV ONE (12:03)
--- NOTE | 2018-06-09 13:28 | CT ---
Date of service: 06/09/2018 PROCEDURE: CT Chest with contrast (Pulmonary Angiogram) HISTORY: SOB, palpitations COMPARISON: None available. TECHNIQUE: Axial computed tomography images were obtained of the chest in the pulmonary arterial phase of enhancement. Coronal and sagittal reformatted images were created and reviewed. Intravenous contrast dose: Visipaque 320, 95 cc Radiation dose: Total exam DLP = 363.46 mGy-cm. This CT exam was performed using one or more of the following dose reduction techniques: Automated exposure control, adjustment of the mA and/or kV according to patient size, and/or use of iterative reconstruction technique. FINDINGS: PULMONARY ARTERIES: There is a solitary of diminished density identified in a distal right lower lobe pulmonary artery branch suspicious for but not definitive for a tiny pulmonary embolus. Remaining bilateral pulmonary arteries are normal in overall contrast attenuation. AORTA: No acute findings. No thoracic aortic aneurysm. No aortic atherosclerotic calcification or mural plaque present. Right and left ventricular sizes appear grossly within normal limits with no evidence of right ventricular dilatation or straightening/leftward convexity of the interventricular septum. No overt CT pattern of right ventricular strain appreciable. LUNGS: No nodule, mass or pulmonary consolidation. Trace bilateral basilar dependent atelectasis. PLEURAL SPACES: Unremarkable. No effusion or pneumothorax. HEART: Unremarkable. No cardiomegaly. No significant pericardial effusion. LYMPH NODES: No lymphadenopathy. BONES, CHEST WALL: Unremarkable. No fracture or destructive lesion the thoracic inlet appears unremarkable. OTHER FINDINGS: Unremarkable. IMPRESSION: 1. No enhancement versus potential tiny pulmonary embolus and a solitary right lower lobe pulmonary artery with remainder of the pulmonary arterial system normal appearing. Overt CT pattern of right ventricular strain. Clinically correlate nevertheless. 2. Trace bibasilar dependent atelectasis. Findings discussed with Dr. Coats with written down and read back verification 06/01/2018 1:10 p.m..
[2018-06-09] MEDS ORDERED: Enoxaparin 100 mg Syringe SC STA (13:45)
[2018-06-09] MEDS ORDERED: Enoxaparin 80 mg Syringe SC STA (14:14)
--- NOTE | 2018-06-09 16:57 | US ---
Date of service: 06/09/2018 PROCEDURE: Bilateral lower extremity venous duplex Doppler. HISTORY: PE COMPARISON: None available. TECHNIQUE: Bilateral common femoral, superficial femoral, popliteal and posterior tibial veins were evaluated. Flow was assessed with color Doppler, compressibility, assessment of phasic flow and augmentation response. FINDINGS: COMMON FEMORAL VEIN: Right CFV: Unremarkable. Left CFV: Unremarkable. SUPERFICIAL FEMORAL VEIN: Right SFV: Unremarkable. Left SFV: Unremarkable. POPLITEAL VEIN: Right Popliteal: Unremarkable. Left Popliteal: Unremarkable. POSTERIOR TIBIAL VEIN: Right PTV: Unremarkable. Left PTV: Unremarkable. OTHER FINDINGS: None. IMPRESSION: No evidence of deep venous thrombosis.
--- NOTE | 2018-06-09 17:10 | CARD ---
APPROVED REPORT Date of service: 06/09/2018 EKG Measurement Heart [id number] <Conclusion> Normal sinus rhythm with sinus arrhythmia Normal ECG
[2018-06-09] MEDS: ATENOLOL 100 MG TAB PO SCH (17:44)
[2018-06-09] MEDS ORDERED: Apap-Butalbital-Caffeine 325-50-40mg Tab PO PRN (17:51)
--- NOTE | 2018-06-09 17:59 | CP.PCM.HP ---
History of Present Illness - History of Present Illness History of Present Illness: 32YR OLD FEMALE ADMITTED VIA THE ER BECAUSE OF NAUSEA,PALPITATIONS AND SHORTNESS OF BREATH.SYMPTOMS STARTED 48 HRS AGO,SUBSIDED THEN RESTARTED TODAY,ASSOCIATED WITH ANXIETY AND PANIC ATTACKS.PT HAS A HISTORY OF HYPERTENSION,ANXIETY DISORDER AND MIGRAINE HEADACHES. CT SCAN OF CHEST IN ER WAS QUESTIONABLE FOR PULMONARY EMBOLI AND D.DIMER WAS ELEVATED. FAMILY HISTORY IS REMARKABLE FOR HYPERTENSION IN PARENTS Present on Admission - Present on Admission Any Indicators Present on Admission: No Past Patient History - Infectious Disease Hx of Infectious Diseases: None - Past Social History Smoking Status: Never Smoked - CARDIAC Hx Cardiac Disorders: Yes - PULMONARY Hx Respiratory Disorders: No - NEUROLOGICAL Hx Neurological Disorder: No - HEENT Hx HEENT Problems: No - RENAL Hx Chronic Kidney Disease: No - ENDOCRINE/METABOLIC Hx Endocrine Disorders: No - HEMATOLOGICAL/ONCOLOGICAL Hx Blood Disorders: No - INTEGUMENTARY Hx Dermatological Problems: No - MUSCULOSKELETAL/RHEUMATOLOGICAL Hx Musculoskeletal Disorders: Yes Hx Falls: No - GASTROINTESTINAL Hx Gastrointestinal Disorders: No - GENITOURINARY/GYNECOLOGICAL Hx Genitourinary Disorders: No - PSYCHIATRIC Hx Psychophysiologic Disorder: No Hx Substance Use: No - SURGICAL HISTORY Hx Surgeries: Yes Hx Section: Yes (X3) Hx Tubal Ligation: Yes - ANESTHESIA Hx Anesthesia: Yes Hx Anesthesia Reactions: No Hx Malignant Hyperthermia: No Meds Allergies/Adverse Reactions: Allergies Allergy/AdvReac Type Severity Reaction Status Date / Time No Known Allergies Allergy Verified 06/09/18 09:25 Physical Exam - Constitutional Appears: No Acute Distress - Head Exam Head Exam: ATRAUMATIC, NORMAL INSPECTION, NORMOCEPHALIC - Eye Exam Eye Exam: EOMI, Normal appearance, PERRL Pupil Exam: NORMAL ACCOMODATION, PERRL - ENT Exam ENT Exam: Mucous Membranes Moist, Normal Exam - Neck Exam Neck exam: Positive for: Normal Inspection - Respiratory Exam Respiratory Exam: Clear to Auscultation Bilateral, NORMAL BREATHING PATTERN - Cardiovascular Exam Cardiovascular Exam: REGULAR RHYTHM - GI/Abdominal Exam GI & Abdominal Exam: Normal Bowel Sounds, Soft. absent: Tenderness - Rectal Exam Rectal Exam: NORMAL INSPECTION - Extremities Exam Extremities exam: Positive for: normal inspection - Back Exam Back exam: NORMAL INSPECTION - Neurological Exam Neurological exam: Alert, CN II-XII Intact, Normal Gait, Oriented x3, Reflexes Normal - Psychiatric Exam Psychiatric exam: Anxious - Skin Skin Exam: Dry, Intact, Normal Color, Warm Results - Vital Signs Recent Vital Signs: Last Vital Signs Temp 98.6 F 06/09/18 16:32 Pulse 57 L 06/09/18 17:44 Resp 16 06/09/18 16:42 BP 120/78 06/09/18 17:44 Pulse Ox 100 06/09/18 16:32 - Labs Result Diagrams: 06/09/18 10:34 06/09/18 10:34 Labs: Laboratory Results - last 24 hr 06/09/18 06/09/18 06/09/18 10:34 10:34 10:34 WBC 6.2 RBC 4.16 Hgb 12.6 Hct 37.7 MCV 90.6 MCH 30.4 MCHC 33.5 RDW 13.4 Plt Count 328 MPV 7.8 Neut % (Auto) 67.2 Lymph % (Auto) 24.4 Parmer % (Auto) 6.1 Eos % (Auto) 1.8 Baso % (Auto) 0.5 Neut # (Auto) 4.2 Lymph # (Auto) 1.5 Parmer # (Auto) 0.4 Eos # (Auto) 0.1 Baso # (Auto) 0.0 PT 12.2 INR 1.1 APTT 31.7 D-Dimer, Quantitative 320 H Sodium 140 Potassium 4.3 Chloride 106 Carbon Dioxide 25 Anion Gap 13 BUN 12 Creatinine 0.6 L Est GFR ( Amer) > 60 Est GFR (Non-Af Amer) > 60 Random Glucose 90 Calcium 9.2 Total Bilirubin 0.6 AST 36 ALT 31 Alkaline Phosphatase 73 Total Protein 8.5 H Albumin 4.4 Globulin 4.1 H Albumin/Globulin Ratio 1.1 TSH 3rd Generation 1.32 Urine Color Urine Clarity Urine pH Ur Specific [place] Urine Protein Urine Glucose (UA) Urine Ketones Urine Blood Urine Nitrate Urine Bilirubin Urine Urobilinogen Ur Leukocyte Esterase Urine RBC (Auto) Urine Microscopic WBC Ur Squamous Epith Cells Urine Bacteria 06/09/18 10:40 WBC RBC Hgb Hct MCV MCH MCHC RDW Plt Count MPV Neut % (Auto) Lymph % (Auto) Parmer % (Auto) Eos % (Auto) Baso % (Auto) Neut # (Auto) Lymph # (Auto) [place] # (Auto) Eos # (Auto) Baso # (Auto) PT INR APTT D-Dimer, Quantitative Sodium Potassium Chloride Carbon Dioxide Anion Gap BUN Creatinine Est GFR ( Amer) Est GFR (Non-Af Amer) Random Glucose Calcium Total Bilirubin AST ALT Alkaline Phosphatase Total Protein Albumin Globulin Albumin/Globulin Ratio TSH 3rd Generation Urine Color Yellow Urine Clarity Slighty-cloudy Urine pH 6.0 Ur Specific [place] 1.019 Urine Protein 30 Urine Glucose (UA) Neg Urine Ketones Negative Urine Blood Negative Urine Nitrate Negative Urine Bilirubin Negative Urine Urobilinogen 2.0 H Ur Leukocyte Esterase Neg Urine RBC (Auto) 2 Urine Microscopic WBC 1 Ur Squamous Epith Cells 12 H Urine Bacteria Rare Assessment & Plan - Assessment and Plan (Free Text) Assessment: ANXIETY WITH PANIC ATTACK--R/O ACUTE PULMONARY EMBOLI HTN MIGRAINE HEADACHES Plan: FOR V/Q SCAN OF LUNGS IN AM LOVENOX SQ O2 D/C IN AM IF V/Q SCAN IS NON-REVEALING[CONTINUE ANTICOAGULATION AND HEME WORKUP IF PE IS PROVEN] - Date & Time Date: 06/09/18 Time: 18:02
[2018-06-10] MEDS: Enoxaparin 80 mg Syringe SC SCH ×2 (03:00→17:39)
[2018-06-10] MEDS: ATENOLOL 100 MG TAB PO SCH ×2 (09:47→17:39)
[2018-06-10 12:30] VITALS: O2SAT 96
--- NOTE | 2018-06-10 13:22 | CP.PCM.PN ---
Subjective - Date & Time of Evaluation Date of Evaluation: 06/10/18 Time of Evaluation: 13:22 - Subjective Subjective: CHEST PAIN FREE NO SOB HEADACHES RESOLVED Objective - Vital Signs/Intake and Output Vital Signs (last 24 hours): Temp Pulse Resp BP Pulse Ox 98.4 F 70 20 119/79 96 06/10/18 12:30 06/10/18 12:30 06/10/18 12:30 06/10/18 12:30 06/10/18 12:30 - Medications Medications: Current Medications Acetaminophen (Tylenol 325mg Tab) 650 mg PO Q4 PRN PRN Reason: Headache Acetaminophen/Butalbital/Caffeine (Fioricet) 1 tab PO Q4 PRN PRN Reason: Headache Alprazolam (Xanax) 0.25 mg PO Q12 PRN PRN Reason: Anxiety Stop: 06/16/18 17:53 Last Admin: 06/09/18 19:38 Dose: 0.25 mg Amlodipine Besylate (Norvasc) 10 mg PO DAILY [facility] Last Admin: 06/10/18 09:48 Dose: 10 mg Atenolol (Atenolol) 100 mg PO BID [facility] Last Admin: 06/10/18 09:47 Dose: 100 mg Enoxaparin Sodium (Lovenox) 80 mg SC Q12@0200,1400 NORBERTO; Protocol Last Admin: 06/10/18 03:00 Dose: 80 mg Zolpidem Tartrate (Ambien) 5 mg PO HS PRN PRN Reason: Insomnia - Labs Labs: 06/09/18 10:34 06/09/18 10:34 PT 12.2 Seconds (9.8-13.1) 06/09/18 10:34 INR 1.1 06/09/18 10:34 APTT 31.7 Seconds (25.6-37.1) 06/09/18 10:34 - Constitutional Appears: No Acute Distress - Head Exam Head Exam: ATRAUMATIC, NORMAL INSPECTION, NORMOCEPHALIC - Eye Exam Eye Exam: EOMI, Normal appearance, PERRL Pupil Exam: NORMAL ACCOMODATION, PERRL - ENT Exam ENT Exam: Mucous Membranes Moist, Normal Exam - Neck Exam Neck Exam: Full ROM, Normal Inspection. absent: Lymphadenopathy - Respiratory Exam Respiratory Exam: Clear to Ausculation Bilateral, NORMAL BREATHING PATTERN - Cardiovascular Exam Cardiovascular Exam: REGULAR RHYTHM, +S1, +S2. absent: Murmur - GI/Abdominal Exam GI & Abdominal Exam: Soft, Normal Bowel Sounds. absent: Tenderness - Rectal Exam Rectal Exam: NORMAL INSPECTION - Extremities Exam Extremities Exam: Full ROM, Normal Capillary Refill, Normal Inspection. absent: Joint Swelling, Pedal Edema - Back Exam Back Exam: NORMAL INSPECTION - Neurological Exam Neurological Exam: Alert, Awake, CN II-XII Intact, Normal Gait, Oriented x3 - Psychiatric Exam Psychiatric exam: Normal Affect, Normal Mood - Skin Skin Exam: Dry, Intact, Normal Color, Warm Assessment and Plan - Assessment and Plan (Free Text) Assessment: ANXIETY R/O PULMONARY EMBOLI Plan: AWAIT V/Q SCAN BEFORE PLANNING ON DISCHARGE
--- NOTE | 2018-06-10 16:22 | NM ---
Date of service: 06/10/2018 COMPARISON: June 09, 2018. CT pulmonary angiogram. June 09, 2018. Two view chest. TECHNIQUE: 33.65 mCi technetium 99-m DTPA aerosol. 5.26 mCI technetium 99-m MAA administered intravenously. FINDINGS: VENTILATION COMPONENT: Normal.Retention of radionuclide in the tracheobronchial tree and ingestion of radionuclide in the stomach, incidental findings PERFUSION COMPONENT: Heterogeneous distribution of radionuclide. No geographic, segmental, lobar abnormalities apparent on the present examination. IMPRESSION: Low probability ventilation perfusion scan for pulmonary embolism.
[2018-06-10 16:32] VITALS: BP 135/81; PULSE 66; RESP 18; TEMP 98.5
--- NOTE | 2018-06-10 20:10 | CARD ---
APPROVED REPORT Date of service: 06/10/2018 EXAM: Two-dimensional and M-mode echocardiogram with Doppler and color Doppler. Other Information Quality : GoodRhythm : NSR INDICATION Pulmonary Embolism 2D DIMENSIONS IVSd1.03 (0.7-1.1cm)LVDd4.07 (3.9-5.9cm) LVOT Diameter1.95 (1.8-2.4cm)PWd0.94 (0.7-1.1cm) IVSs1.53 (0.8-1.2cm)LVDs2.44 (2.5-4.0cm) FS (%) 40.0 %PWs1.56 (0.8-1.2cm) M-Mode DIMENSIONS Left Atrium (MM)4.17 (2.5-4.0cm)IVSd1.11 (0.7-1.1cm) Aortic Root2.52 (2.2-3.7cm)LVDd4.27 (4.0-5.6cm) Aortic Cusp Exc.2.06 (1.5-2.0cm)PWd1.42 (0.7-1.1cm) IVSs1.67 cmFS (%) 46 % LVDs2.32 (2.0-3.8cm)PWs1.96 cm Aortic Valve AoV Peak Wqctojki970.6cm/sAoV VTI35.6cmAO Peak GR.9mmHg LVOT Peak Fponrxwa406.9cm/sLVOT VTI27.68cmAO Mean GR.5mmHg BRIAN (VMAX)1.28vs1RQR (VTI)1.24cm2 Mitral Valve MV E Uyfcszsy86.1cm/sMV DECEL [id number] A Kdjbefcg88.1cm/s MV ZWE92gsH/A ratio1.4MVA (PHT)4.21cm2 TDI Lateral E' Peak V15.24cm/sMedial E' Peak V9.94cm/sE/Lateral E'4.8 E/Medial E'7.4 Tricuspid Valve TR Peak Ytvepxpw907ai/sRAP [id number] Peak Gr.14mmHg [id number] LEFT VENTRICLE The left ventricle is normal size. There is normal left ventricular wall thickness. The left ventricular systolic function is normal. The estimated ejection fraction is 60-65% No regional wall motion abnormalities noted.. The left ventricular diastolic function is normal. No left ventricle thrombus noted on this study. There is no ventricular septal defect visualized. There is no left ventricular aneurysm. There is no mass noted in the left ventricle. RIGHT VENTRICLE The right ventricle is normal size. There is normal right ventricular wall thickness. The right ventricular systolic function is normal. ATRIA The left atrium is mildly dilated. The right atrium size is normal. The interatrial septum is intact with no evidence for an atrial septal defect. AORTIC VALVE The aortic valve is normal in structure. No aortic regurgitation is present. There is no aortic valvular stenosis. There is no aortic valvular vegetation. MITRAL VALVE The mitral valve is normal in structure. There is no evidence of mitral valve prolapse. There is no mitral valve stenosis. There is no mitral valve regurgitation noted. TRICUSPID VALVE The tricuspid valve is normal in structure. There is trace tricuspid valve regurgitation noted. RVSP is calculated at 20 mm Hg. There is no tricuspid valve prolapse or vegetation. There is no tricuspid valve stenosis. PULMONIC VALVE The pulmonary valve is normal in structure. There is no pulmonic valvular regurgitation. There is no pulmonic valvular stenosis. GREAT VESSELS The aortic root is normal in size. The ascending aorta is normal in size. The pulmonary artery is normal. The IVC is normal in size and collapses >50% with inspiration. PERICARDIAL EFFUSION There is no pericardial effusion. There is no pleural effusion. <Conclusion> The estimated ejection fraction is 60-65% The left ventricular diastolic function is normal. The right ventricular systolic function is normal. No signs of RV strain. The left atrium is mildly dilated. There is trace tricuspid valve regurgitation noted. RVSP is calculated at 20 mm Hg.
--- NOTE | 2018-06-12 12:29 | CP.PCM.DIS ---
Provider - Provider Date of Admission: 06/09/18 13:46 Attending physician: Juan M Ortez MD Time Spent in preparation of Discharge (in minutes): 30 Diagnosis - Discharge Diagnosis (1) Anxiety Status: Acute (2) Chest pain Status: Acute (3) Migraine Status: Acute Hospital Course - Lab Results Lab Results: Most Recent Lab Values WBC 6.2 K/uL (4.8-10.8) 06/09/18 10:34 RBC 4.16 Mil/uL (3.80-5.20) 06/09/18 10:34 Hgb 12.6 g/dL (12.0-16.0) 06/09/18 10:34 Hct 37.7 % (34.0-47.0) 06/09/18 10:34 MCV 90.6 fl (81.0-99.0) 06/09/18 10:34 MCH 30.4 pg (27.0-31.0) 06/09/18 10:34 MCHC 33.5 g/dL (33.0-37.0) 06/09/18 10:34 RDW 13.4 % (11.5-14.5) 06/09/18 10:34 Plt Count 328 K/uL (130-400) 06/09/18 10:34 MPV 7.8 fl (7.2-11.7) 06/09/18 10:34 Neut % (Auto) 67.2 % (50.0-75.0) 06/09/18 10:34 Lymph % (Auto) 24.4 % (20.0-40.0) 06/09/18 10:34 [place] % (Auto) 6.1 % (0.0-10.0) 06/09/18 10:34 Eos % (Auto) 1.8 % (0.0-4.0) 06/09/18 10:34 Baso % (Auto) 0.5 % (0.0-2.0) 06/09/18 10:34 Neut # (Auto) 4.2 K/uL (1.8-7.0) 06/09/18 10:34 Lymph # (Auto) 1.5 K/uL (1.0-4.3) 06/09/18 10:34 [place] # (Auto) 0.4 K/uL (0.0-0.8) 06/09/18 10:34 Eos # (Auto) 0.1 K/uL (0.0-0.7) 06/09/18 10:34 Baso # (Auto) 0.0 K/uL (0.0-0.2) 06/09/18 10:34 PT 12.2 Seconds (9.8-13.1) 06/09/18 10:34 INR 1.1 06/09/18 10:34 APTT 31.7 Seconds (25.6-37.1) 06/09/18 10:34 D-Dimer, Quantitative 320 ng/mlDDU (0-230) H 06/09/18 10:34 Sodium 140 mmol/l (132-148) 06/09/18 10:34 Potassium 4.3 MMOL/L (3.6-5.0) 06/09/18 10:34 Chloride 106 mmol/L (98-107) 06/09/18 10:34 Carbon Dioxide 25 mmol/L (22-30) 06/09/18 10:34 Anion Gap 13 (10-20) 06/09/18 10:34 BUN 12 mg/dl (7-17) 06/09/18 10:34 Creatinine 0.6 mg/dl (0.7-1.2) L 06/09/18 10:34 Est GFR ( Amer) > 60 06/09/18 10:34 Est GFR (Non-Af Amer) > 60 06/09/18 10:34 Random Glucose 90 mg/dL (65-105) 06/09/18 10:34 Calcium 9.2 mg/dL (8.4-10.2) 06/09/18 10:34 Total Bilirubin 0.6 mg/dl (0.2-1.3) 06/09/18 10:34 AST 36 U/L (14-36) 06/09/18 10:34 ALT 31 U/L (9-52) 06/09/18 10:34 Alkaline Phosphatase 73 U/L (38-126) 06/09/18 10:34 Total Protein 8.5 G/DL (6.3-8.2) H 06/09/18 10:34 Albumin 4.4 g/dL (3.5-5.0) 06/09/18 10:34 Globulin 4.1 gm/dL (2.2-3.9) H 06/09/18 10:34 Albumin/Globulin Ratio 1.1 (1.0-2.1) 06/09/18 10:34 TSH 3rd Generation 1.32 mIU/ML (0.46-4.68) 06/09/18 10:34 Urine Color Yellow (YELLOW) 06/09/18 10:40 Urine Clarity Slighty-cloudy (Clear) 06/09/18 10:40 Urine pH 6.0 (5.0-8.0) 06/09/18 10:40 Ur Specific [place] 1.019 (1.003-1.030) 06/09/18 10:40 Urine Protein 30 mg/dL (NEGATIVE) 06/09/18 10:40 Urine Glucose (UA) Neg mg/dL (NEGATIVE) 06/09/18 10:40 Urine Ketones Negative mg/dL (NEGATIVE) 06/09/18 10:40 Urine Blood Negative (NEGATIVE) 06/09/18 10:40 Urine Nitrate Negative (NEGATIVE) 06/09/18 10:40 Urine Bilirubin Negative (NEGATIVE) 06/09/18 10:40 Urine Urobilinogen 2.0 mg/dL (0.2-1.0) H 06/09/18 10:40 Ur Leukocyte Esterase Neg Hossein/uL (Negative) 06/09/18 10:40 Urine RBC (Auto) 2 /hpf (0-3) 06/09/18 10:40 Urine Microscopic WBC 1 /hpf (0-5) 06/09/18 10:40 Ur Squamous Epith Cells 12 /hpf (0-5) H 06/09/18 10:40 Urine Bacteria Rare (<OCC) 06/09/18 10:40 - Hospital Course Hospital Course: SYMPTOMS RESOLVED WITH ANTI-ANXIETY MEDS ALL WORKUP FOR PULMONARY EMBOLI NEGATIVE Discharge Exam - Head Exam Head Exam: ATRAUMATIC, NORMAL INSPECTION, NORMOCEPHALIC - Eye Exam Eye Exam: EOMI, Normal appearance, PERRL Pupil Exam: NORMAL ACCOMODATION, PERRL - GI/Abdominal Exam GI & Abdominal Exam: Normal Bowel Sounds - Rectal Exam Rectal Exam: NORMAL INSPECTION - Neurological Exam Neurological exam: Alert, CN II-XII Intact, Normal Gait, Oriented x3, Reflexes Normal - Psychiatric Exam Psychiatric exam: Normal Affect, Normal Mood - Skin Skin Exam: Dry, Intact, Normal Color, Warm Discharge Plan - Follow Up Plan Condition: GOOD Disposition: HOME/ ROUTINE Instructions: High Blood Pressure (DC), Paresthesias (DC) Referrals: Dickson Daniel MD [Family Provider] - Juan M Ortez MD [Staff Provider] -
== END 2018-06-10 18:56 | disposition home or self-care (01) | DRG 425 ==
LOC: H.ER 09:05 → H.ERHOLD 13:46 → H.TEL 16:17
PROVIDERS: ADMIT Internal Medicine Pulmonary Disease; ATTEND Internal Medicine Pulmonary Disease
DX: F41.0 Panic disorder [episodic paroxysmal anxiety] (principal); I10 Essential (primary) hypertension; M54.9 Dorsalgia, unspecified; G43.909 Migraine, unspecified, not intractable, without status migrainosus; Z98.891 History of uterine scar from previous surgery; Z98.51 Tubal ligation status; R79.1 Abnormal coagulation profile; Z82.49 Family history of ischemic heart disease and other diseases of the circulatory system